=== PATIENT | male | born 1925 | race Caucasian/White ===

== ENCOUNTER 2016-07-04 08:31 | Emergency (ER) | payer MEDICARE, OTHER ==
[~2016-07-04 08:31] MED LIST: ASPI81 PO; CLOP75 PO; METO25 PO; MULTAQ PO; PRAV80TA PO; TAB-TAB PO
[2016-07-04 08:33] VITALS: BP 190/79; PULSE 68; RESP 20; TEMP 97.5; O2SAT 99
[2016-07-04] MEDS ORDERED: CHLO25TA2 PO (08:43)
[2016-07-04] MEDS ORDERED: CLOP75TA PO (08:43)
[2016-07-04] MEDS ORDERED: ZENP2000 PO (08:43)
[2016-07-04] MEDS ORDERED: CASO50TA2 PO (08:43)
[2016-07-04] MEDS ORDERED: GLIM4TAB PO (08:43)
[2016-07-04] MEDS ORDERED: METF500T PO (08:43)
[2016-07-04] MEDS ORDERED: PRAV10TA PO (08:43)
[2016-07-04 08:55] VITALS: O2SAT 100
[2016-07-04] MEDS ORDERED: SODIUM CHLORIDE 0.9% FLUSH 5 ML FLUSH IVF PRN (09:00)
[2016-07-04] MEDS ORDERED: ASPIRIN 81 MG CHEW TAB PO ONE (09:00)
[2016-07-04 09:19] LABS: APTT (PATIENT) 27.1 SEC (24.3-30.1); AUTOMATED NEUTROPHIL # 4.3 TH/MM3 (1.8-7.7); BASOPHIL # 0.1 TH/MM3 (0-0.2); EOSINOPHIL # 0.3 TH/MM3 (0-0.4); EOSINOPHIL % 3.8 % (0.0-4.0); HEMATOCRIT 33.3 % (39.0-51.0); HEMO FLAGS DIFF FINAL; LYMPH % 20.7 % (9.0-44.0); LYMPHOCYTE # 1.4 TH/MM3 (1.0-4.8); MEAN CELL VOLUME 86.4 FL (80.0-100.0); MEAN CORPUSCULAR HGB CONC 33.5 % (32.0-36.0); NEUT % 65.5 % (16.0-70.0); PLATELET COUNT 192 TH/MM3 (150-450); PROTHROMBIN TIME - PATIENT 10.8 SEC (9.8-11.6); RED BLOOD COUNT 3.86 MIL/MM3 (4.50-5.90); RED CELL DISTRIBUTION WIDTH 13.9 % (11.6-17.2); WHITE BLOOD COUNT 6.6 TH/MM3 (4.0-11.0)
--- NOTE | 2016-07-04 09:19 | RADRPT ---
EXAM DATE/TIME: 07/04/2016 08:59 [facility] COMPARISON: No previous studies available for comparison. INDICATIONS : Pain in left chest and left arm today since 7am MEDICAL HISTORY : Cardiovascular disease. SURGICAL HISTORY : CABG. ENCOUNTER: Initial ACUITY: 1 day PAIN SCORE: 6/10 LOCATION: Left chest FINDINGS: The patient is status post sternotomy. The heart size is normal. The lungs are grossly clear. No effu harish is seen. CONCLUSION: No acute disease. Félix Moon MD on July 04, 2016 at 9:17 Board Certified Radiologist. This report was verified electronically.
[2016-07-04 09:33] LABS: ALKALINE PHOSPHATASE 59 U/L (45-117); ALT (GPT) 18 U/L (12-78); ANION GAP 9 MEQ/L (5-15); AST (GOT) 17 U/L (15-37); BICARBONATE 24.6 MEQ/L (21.0-32.0); BLOOD UREA NITROGEN 21 MG/DL (7-18); CHLORIDE 104 MEQ/L (98-107); GLOMERULAR FILTRATION RATE 43 ML/MIN (>89); POTASSIUM 4.3 MEQ/L (3.5-5.1); SODIUM (NA) 138 MEQ/L (136-145); TOTAL BILIRUBIN ADULT 0.5 MG/DL (0.2-1.0)
--- NOTE | 2016-07-04 09:38 | PD ---
HPI Chief Complaint: Injury Time Seen by Provider: 08:38 Travel History International Travel<30 days: No Contact w/Intl Traveler<30days: No Traveled to known affect area: No History of Present Illness HPI This is an 89-year-old male who has a history of a prior CABG and recently diagnosed metastatic prostate cancer who presents to the emergency department with left shoulder pain that started yesterday, intermittent, described as an aching, moderate severity radiating into his arm. Patient reports this feels similar to when he had heart problems and required the bypass years ago. He denies any shortness of breath, nausea or diaphoresis. He says he recently was diagnosed with metastatic prostate cancer and had some bony involvement in his ribs and his shoulder. The pain doesn't change with movement and doesn't change with exertion. PFSH Past Medical History Cancer: Yes (BONE) Diabetes: Yes Patient Takes Glucophage: Yes Diminished Hearing: No Hypertension: Yes Neurologic: Yes (MYASTHENIA GRAVIS) Tetanus Vaccination: Unknown Past Surgical History Eye Surgery: Yes (CATARACTS) Prostatectomy: Yes Social History Alcohol Use: Yes (SOCAIL) Tobacco Use: No Substance Use: No Allergies-Medications (Allergen,Severity, Reaction): Coded Allergies: Sulfa (Verified Allergy, Severe, 07/04/16) Reported Meds & Prescriptions Reported Meds & Active Scripts Active Reported Casodex (Bicalutamide) 50 Mg Tab 50 Mg PO DAILY Hazardous agent; use appropriate precautions for handling & disposal. Glimepiride 4 Mg Tab 4 Mg PO DAILY Take with breakfast or first main meal Metformin (Metformin HCl) 500 Mg Tab 500 Mg PO BIDPC With meals Chlorthalidone 25 Mg Tab 25 Mg PO DAILY Zenpep (Pancrelipase) 20,000-68,000-109,000 Units Cap 1 Cap PO TIDPC Clopidogrel (Clopidogrel Bisulfate) 75 Mg Tab 75 Mg PO DAILY Pravastatin 10 Mg Tab 10 Mg PO DAILY Review of Systems Except as stated in HPI: all other systems reviewed are Neg Physical Exam Narrative GENERAL:Well appearing, no acute distress SKIN: Small skin tear to the left third digit HEAD: Atraumatic. Normocephalic. EYES: Pupils equal and round. No injection or drainage. ENT: Moist mucous membranes NECK: Trachea midline. CARDIOVASCULAR: Regular rate and rhythm. No murmur appreciated. RESPIRATORY: Clear to auscultation. Breath sounds equal bilaterally. GASTROINTESTINAL: Abdomen soft, non-tender, nondistended. MUSCULOSKELETAL: No obvious deformities. NEUROLOGICAL: Awake and alert. No obvious cranial nerve deficits. Moving all extremities. PSYCHIATRIC: Appropriate mood and affect; insight and judgment normal. Data Data Last Documented VS Vital Signs Date Time Temp Pulse Resp B/P Pulse Ox O2 Delivery O2 Flow Rate FiO2 07/04/16 12:22 53 18 137/64 93 Room Air 07/04/16 08:33 97.5 Orders Electrocardiogram (07/04/16 08:49) Complete Blood Count With Diff (07/04/16 08:49) Comprehensive Metabolic Panel (07/04/16 08:49) Prothrombin Time / Inr (Pt) (07/04/16 08:49) Act Partial Throm Time (Ptt) (07/04/16 08:49) Troponin I (07/04/16 08:49) Chest, Single Ap (07/04/16 08:49) Ecg Monitoring (07/04/16 08:49) Bilateral Bp Monitoring (07/04/16 08:49) Iv Access Insert/Monitor (07/04/16 08:49) Oximetry (07/04/16 08:49) Oxygen Administration (07/04/16 08:49) Aspirin Chew (Aspirin Chew) (07/04/16 09:00) Sodium Chloride 0.9% Flush (Ns Flush) (07/04/16 09:00) Ventilation & Perfusion Scan (07/04/16 ) Sodium Chlor 0.9% 1000 Ml Inj (Ns 1000 M (07/04/16 09:45) Troponin I (07/04/16 11:29) Labs Laboratory Tests Test 07/04/16 07/04/16 08:30 11:46 White Blood Count 6.6 TH/MM3 Red Blood Count 3.86 MIL/MM3 Hemoglobin 11.2 GM/DL Hematocrit 33.3 % Mean Corpuscular Volume 86.4 FL Mean Corpuscular Hemoglobin 29.0 PG Mean Corpuscular Hemoglobin 33.5 % Concent Red Cell Distribution Width 13.9 % Platelet Count 192 TH/MM3 Mean Platelet Volume 7.8 FL Neutrophils (%) (Auto) 65.5 % Lymphocytes (%) (Auto) 20.7 % Monocytes (%) (Auto) 9.0 % Eosinophils (%) (Auto) 3.8 % Basophils (%) (Auto) 1.0 % Neutrophils # (Auto) 4.3 TH/MM3 Lymphocytes # (Auto) 1.4 TH/MM3 Monocytes # (Auto) 0.6 TH/MM3 Eosinophils # (Auto) 0.3 TH/MM3 Basophils # (Auto) 0.1 TH/MM3 CBC Comment DIFF FINAL Differential Comment Prothrombin Time 10.8 SEC Prothromb Time International 1.0 RATIO Ratio Activated Partial 27.1 SEC Thromboplast Time Sodium Level 138 MEQ/L Potassium Level 4.3 MEQ/L Chloride Level 104 MEQ/L Carbon Dioxide Level 24.6 MEQ/L Anion Gap 9 MEQ/L Blood Urea Nitrogen 21 MG/DL Creatinine 1.52 MG/DL Estimat Glomerular Filtration 43 ML/MIN Rate Random Glucose 150 MG/DL Calcium Level 8.7 MG/DL Total Bilirubin 0.5 MG/DL Aspartate Amino Transf 17 U/L (AST/SGOT) Alanine Aminotransferase 18 U/L (ALT/SGPT) Alkaline Phosphatase 59 U/L Troponin I LESS THAN 0.02 LESS THAN 0.02 NG/ML NG/ML Total Protein 7.8 GM/DL Albumin 4.2 GM/DL MDM Medical Decision Making Medical Screen Exam Complete: Yes Emergency Medical Condition: Yes Interpretation(s) Afebrile, no tachycardia, hypertensive Anemia Renal insufficiency Troponin is normal Chest x-ray: No acute process VQ scan is low probability for PE Differential Diagnosis Acute coronary syndrome, pulmonary embolism, malignancy, costochondritis, pneumonia Narrative Course This is an 89-year-old male who presents to the emergency department with left- sided shoulder pain that's been present for 2 days. He does have a remote history of CABG. He is followed by Dr. Adams. He was recently diagnosed with metastatic prostate cancer. There is a pleuritic component to the pain. He was placed on a monitor and an IV was established. Labs were obtained which were reassuring. VQ scan was performed which was low probability for PE. Troponin was negative 2. I suspect this pain is related to bony metastatic disease. I Spoke to Dr. Adams who felt like if the patient had 2 negative troponins he can be discharged and follow-up with him in clinic. Diagnosis Primary Impression: Shoulder pain Qualified Code: M25.512 - Acute pain of left shoulder Patient Instructions: General Instructions Additional Instructions: If you develop severe chest pain, shortness of breath, sweating, lightheadedness , dizziness or difficulty breathing return to the emergency department immediately. Follow-up with her drain tiler in the office as soon as possible. Med/Other Pt SpecificInfo: No Change to Meds Disposition: 01 DISCHARGE HOME Condition: Stable Claire George MD Jul 04, 2016 09:38
[2016-07-04] MEDS ORDERED: SODIUM CHLOR 0.9% 1000 ML INJ 1,000 ML IV SCH (09:45)
--- NOTE | 2016-07-04 11:41 | RADRPT ---
EXAM DATE/TIME: 07/04/2016 10:40 [facility] COMPARISON: No previous studies available for comparison. INDICATIONS : Chest pain. DOSE: 1.2 mCi Tc99m DTPA 8.8 mCi Tc99m MAA MEDICAL HISTORY : Cardiovascular disease. Diabetes mellitus type 2. Prostate cancer. SURGICAL HISTORY : CABG Rotator cuff, right. ENCOUNTER: Initial ACUITY: 1 day PAIN SCALE: 2/10 LOCATION: Bilateral chest TECHNIQUE: Following five minutes of tidal breathing of DTPA aerosol, planar images of the lungs were performed in eight projections. The patient was then injected with MAA, and eight-view perfusio n scan was performed. FINDINGS: There is a homogeneous pattern of aerosol delivery to the periphery of both lungs. No focal ventilat ory defects are seen. The perfusion lung scan demonstrates a homogenous pattern of uptake in both lungs. No segmental or s ubsegmental defects are seen. CONCLUSION: \ Low probability for PE. North Estevez MD FACR on July 04, 2016 at 11:39 Board Certified Radiologist. This report was verified electronically.
[2016-07-04 12:22] VITALS: BP 137/64; PULSE 53; RESP 18; O2SAT 93
--- NOTE | 2016-07-04 14:51 | EKG ---
Date Performed: 07/04/2016 Time Performed: 08:46:36 PTAGE: 89 years EKG: Supraventricular bradycardia Prolonged first-degree AV block Interventricular conduction de lay Abnormal Rhythm ECG PREVIOUS TRACING : 01/13/2010 08.18.54 Compared to previous tracing, the patient is no longer i n atrial fibrillation. DOCTOR: Jackeline Hansen Interpretating Date/Time 07/04/2016 14:49:32
== END 2016-07-04 13:02 | disposition home or self-care (01) ==
LOC: NEPC 08:31
DX: M25.512 Pain in left shoulder (principal); C61 Malignant neoplasm of prostate; C79.51 Secondary malignant neoplasm of bone; R94.31 Abnormal electrocardiogram [ECG] [EKG]; E11.9 Type 2 diabetes mellitus without complications; I10 Essential (primary) hypertension; Z79.84 Long term (current) use of oral hypoglycemic drugs; Z95.1 Presence of aortocoronary bypass graft; Z86.69 Personal history of other diseases of the nervous system and sense organs
CPT/HCPCS: 71010; 78582; 80053; 84484; 85025; 85610; 85730; 93005; 96360; 99284; A9540; A9567; J7030

== ENCOUNTER 2016-08-05 11:05 | Emergency (ER) | payer MEDICARE ==
[~2016-08-05 11:05] MED LIST changes: -ASPI81 PO; +CASO50TA2 PO; +CHLO25TA2 PO; -CLOP75 PO; +CLOP75TA PO; +GLIM4TAB PO; +METF500T PO; -METO25 PO; -MULTAQ PO; +PRAV10TA PO; -PRAV80TA PO; -TAB-TAB PO; +ZENP2000 PO
[2016-08-05 11:09] VITALS: BP 113/81; PULSE 88; RESP 24; TEMP 98.6; O2SAT 96
--- NOTE | 2016-08-05 11:40 | PD ---
Physical Exam Time Seen by Provider: 11:40 Data Data Last Documented VS Vital Signs Date Time Temp Pulse Resp B/P Pulse Ox O2 Delivery O2 Flow Rate FiO2 08/05/16 11:09 98.6 88 24 113/81 96 Britney Torres Aug 05, 2016 11:40
== END 2016-08-05 11:30 | disposition left against medical advice (07) ==
LOC: NED 11:05
DX: Z53.21 Procedure and treatment not carried out due to patient leaving prior to being seen by health care provider (principal)
CPT/HCPCS: 99281